=== PATIENT | female | born 1955 | race Caucasian/White ===

== ENCOUNTER → 2017-04-09 | Outpatient (CLI) | payer OTHER ==
--- NOTE | 2017-04-10 10:38 | DIREP ---
PROCEDURE:MR KNEE WITHOUT CONTRAST [Right] TECHNIQUE:Multi-planar MR images of the right knee were obtained without contrast. COMPARISON:[facility], CR, XRAY KNEE 1-2 VWS-RT, 04/05/2017, 02:29 PM. INDICATIONS:RIGHT KNEE PAIN FINDINGS: MENISCI:Partial-thickness radial tear is present involving the posterior horn medial meniscus, image 9 sagittal PD and image 19 coronal STIR. The lateral meniscus demonstrates normal signal and morphology CRUCIATE LIGAMENTS:Anterior and posterior cruciate ligaments demonstrate normal signal and morphology. COLLATERAL LIGAMENTS:The medial collateral ligament and lateral collateral ligamentous complex are intact. HYALINE CARTILAGE:Moderate chondral thinning in the medial joint compartment with subchondral cyst formation and reactive edema in the anteromedial tibia. Lateral joint compartment articular cartilage demonstrates mild partial thickness fissuring. No full-thickness lateral joint compartment defect. PATELLOFEMORAL:Grade 3/4 chondral changes to the median ridge and medial patellar facet with areas of full-thickness chondral loss present. The quadriceps and patellar tendon are intact. BONES:Subchondral cysts noted in the anteromedial tibia with reactive edema. No visible fracture. OTHER:Small effusion with synovitis. Prepatellar subcutaneous edema with overlying encapsulated fluid collection spanning a length of 6.8 cm and thickness of 0.5 cm. CONCLUSION: 1. Partial-thickness radial tear posterior horn medial meniscus. 2. 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 3. Prepatellar fluid collection either relates to bursitis or hematoma. Infection should only be considered in the appropriate clinical scenario. 4. Small effusion with synovitis. Dictated by: Valdemar Minaya M.D. on 04/10/2017 at 10:20 AM
== END | disposition home or self-care (01) ==
LOC: MRI 15:53
PROVIDERS: ATTEND Nurse Practitioner Family
DX: S83.241A Other tear of medial meniscus, current injury, right knee, initial encounter (principal); M17.11 Unilateral primary osteoarthritis, right knee; M65.161 Other infective (teno)synovitis, right knee; X58.XXXA Exposure to other specified factors, initial encounter; Y93.89 Activity, other specified; Y92.89 Other specified places as the place of occurrence of the external cause; Y99.8 Other external cause status
CPT/HCPCS: 73721

== ENCOUNTER → 2017-07-18 | Outpatient (CLI) | payer OTHER ==
--- NOTE | 2017-07-22 09:01 | ECHO ---
DATE OF SERVICE: 07/18/2017 INDICATIONS: A 61-year-old lady with cardiomyopathy, elected for an echocardiographic study for evaluation of systolic and diastolic function, any wall motion abnormality, or for any structural heart disease. FINDINGS: 1. Study quality unfortunately was poor due to poor acoustic windows and difficult technicalities. 2. The underlying rhythm is sinus rhythm, with bundle-branch block, left sided. 3. LV cavity was dilated and hypokinetic. EF was visually estimated at around 30%. The septum was dyskinetic and the LV cavity was expanding on the right ventricular space. The LV cavity was dilated with end-diastolic dimension of around 6.5 cm. 4. RV size was decreased due to septal akinesia and dyskinesia. RVEF seems to be normal. 5. Both atria were mildly dilated. 6. Trace mitral regurgitation, no stenosis. 7. Doppler signal exam across the mitral valve showed an E to A reversal of diastolic dysfunction. 8. Gradient across the mitral valve by Doppler exam was 3 mmHg, no significant stenosis. 9. LVOT velocity was 0.57 meter per second with normal pressure. 10. LVOT dimension was 2.01 cm. 11. Aortic valve velocity was 1.2 m/sec, aortic valve area was 1.5 cm2. Early stenosis was suggested. 12. Mild tricuspid regurgitation. PA pressure was around 50 mmHg, elevated. 13. Small amount of localized pericardial effusion across the right ventricle. No tamponade was seen. Maximum diameter of the fluid collection was 0.8 cm. 14. Inferior vena cava was not dilated. IMPRESSION: 1. Technically difficult study with poor acoustic windows. 2. Underlying rhythm was sinus rhythm with bundle branch block. 3. EF depressed at around 30%, global hypokinesia with dilated LV cavity, septum was dyskinetic and balance into the RV cavity. 3. RV size was depressed. RVEF was normal. 4. Both atria showed mild dilatation. 5. Trace mitral regurgitation, no stenosis. 6. Aortic sclerosis with early stenosis. 7. Elevated pulmonary artery systolic pressure at around 50 mmHg. 8. Small amount of localized pericardial effusion, no tamponade. 9. Inferior vena cava normal in size. Katelyn Gregg MD DR: TAMANNA/iker JOB# [id number]
== END | disposition home or self-care (01) ==
LOC: RT 13:00
PROVIDERS: ATTEND Nurse Practitioner Family
DX: I43 Cardiomyopathy in diseases classified elsewhere (principal); I70.0 Atherosclerosis of aorta; I31.3 Pericardial effusion (noninflammatory)
CPT/HCPCS: 93307

== ENCOUNTER → 2017-07-24 | Outpatient (CLI) | payer OTHER | END | disposition home or self-care (01) | LOC: BD 14:25 | PROVIDERS: ATTEND Nurse Practitioner Family | DX: M81.0 Age-related osteoporosis without current pathological fracture (principal) | CPT/HCPCS: 77080 ==

== ENCOUNTER → 2018-12-02 | Outpatient (CLI) | payer OTHER ==
[2018-12-02 16:16] LABS: HEMOGLOBIN 14.7 g/dL (12.0-15.0); MEAN CELL HGB CONCENTRATION 34.3 g/dL (33-37); MEAN CORP VOLUME 90.3 fL (78-100); MEAN PLATELET VOLUME 9.2 fL (7.8-11.0); RED CELL DISTRIBUTION WIDTH 12.7 % (11.5-14.5); WHITE BLOOD CELL 5.2 10^3/uL (4.5-11.0)
[2018-12-02 16:41] LABS: CALCIUM 9.3 mg/dL (8.4-10.5); CARBON DIOXIDE 25.2 mmol/L (20.0-32)
[2018-12-04 07:30] LABS: FOLLICLE STIMULATING HORMONE 54.5 mIU/mL (.)
== END | disposition home or self-care (01) ==
LOC: LAB 15:58
PROVIDERS: ATTEND Nurse Practitioner Family
DX: Z23 Encounter for immunization (principal); E11.9 Type 2 diabetes mellitus without complications; I10 Essential (primary) hypertension; N95.1 Menopausal and female climacteric states; E55.9 Vitamin D deficiency, unspecified
CPT/HCPCS: 36415; 80053; 80061; 82306; 82677; 83001; 83002; 83036; 83735; 84146; 84403; 84439; 84443; 85027; 86735; 86762; 86765

== ENCOUNTER → 2018-12-10 | Outpatient (CLI) | payer OTHER ==
--- NOTE | 2018-12-11 09:16 | DIREP ---
PROCEDURE:Digital Screening Mammogram TECHNIQUE:MLO, CC, and XCCL digital images of each breast are provided. Computer Assisted Detection (CAD) was utilized. COMPARISON:[facility], , DIGITAL MAMMO SCREENING, 08/17/2014, 02:31 PM. INDICATIONS:SCREENING BREAST COMPOSITION:There are scattered areas of fibroglandular density. FINDINGS:There are no grouped microcalcifications, masses, or architectural distortions to suggest malignancy. There is no significant change as compared with the previous examination(s). IMPRESSION:No mammographic evidence of malignancy. RECOMMENDATIONS:Routine Screening Mammography per [employer] guidelines. OVERALL FINAL ASSESSMENT:BI-RADS 1 - Negative Mammogram Note: This facility participates in a mammography screening patient reminder system. Dictated by: Duane Sharp M.D. on 12/11/2018 at 09:13 AM
== END | disposition home or self-care (01) ==
LOC: RAD 15:22
PROVIDERS: ATTEND Nurse Practitioner Family
DX: Z12.31 Encounter for screening mammogram for malignant neoplasm of breast (principal)
CPT/HCPCS: 77067

== ENCOUNTER → 2019-09-07 | Outpatient (CLI) | payer OTHER ==
--- NOTE | 2019-09-07 17:33 | DIREP ---
PROCEDURE:XRAY KNEE 2 VWS-LT COMPARISON:None. INDICATIONS:PAIN FINDINGS: BONES:Normal. JOINTS:Normal. SOFT TISSUES:Normal. OTHER:No additional findings. CONCLUSION: 1. No fracture, hemarthrosis, joint effusion, or significant osteoarthritic changes demonstrated. Dictated by: Quentin Marsh M.D. on 09/07/2019 at 05:31 PM
== END | disposition home or self-care (01) ==
LOC: RAD 16:02
PROVIDERS: ATTEND Nurse Practitioner Family
DX: M25.562 Pain in left knee (principal)
CPT/HCPCS: 73560-LT

== ENCOUNTER → 2019-09-11 | Outpatient (CLI) | payer OTHER ==
--- NOTE | 2019-09-11 14:33 | DIREP ---
PROCEDURE:CT LOWER EXTREMITY-LT W/O COMPARISON:[facility], CR, XRAY KNEE 1-2 VWS-LT, 09/07/2019, 05:09 PM. INDICATIONS:PAIN TECHNIQUE:Axial sections through the left knee were performed with sagittal and coronal reconstructions from source images. No contrast was administered. FINDINGS: BONES:No fracture noted. JOINTS:Mild tricompartmental degenerative changes,, with a focal lucent area in the patellar apex. No joint effusion is noted. SOFT TISSUES:Normal OTHER:Negative. CONCLUSION:Degenerative changes without acute abnormality noted. Dictated by: Дмитрий Yepez M.D. on 09/11/2019 at 02:27 PM
== END | disposition home or self-care (01) ==
LOC: MRI 11:15
PROVIDERS: ATTEND Nurse Practitioner Family
DX: M17.12 Unilateral primary osteoarthritis, left knee (principal)
CPT/HCPCS: 73700

== ENCOUNTER 2019-12-20 17:17 | Emergency (ER) | payer OTHER ==
[~2019-12-20] VITALS: Ht 162.6 cm; Wt 83.5 kg
[2019-12-20 17:27] VITALS: BP 104/67
--- NOTE | 2019-12-20 17:30 | NUR ---
ARRIVAL PT ARRIVED TO ER WITH C/O COUGH, SOB DURING COUGH SPELLS AND DIARRHEA. PTS SPOUSE HAS BEEN CONFIRMED COVID 19 AND IS CURRENTLY IN PT AND ON VENTILATOR. PT REPORTS SHE HAS HAD COUGH FOR A FEW WEEKS STARTING AROUND 12/03/19 WITH INCREASED COUGHING AND SOB DURING COUGHING SPELLS THE LAST DAY. BEDSIDE MONITORS APPLIED.
[2019-12-20 17:39] VITALS: BP 104/67
--- NOTE | 2019-12-20 17:40 | ER.PDOC ---
General Chief Complaint: Requesting Medical Care Stated Complaint: SOB, COUGH, FEVER Time seen by MD: 17:33 Source: patient Exam Limitations: no limitations History of Present Illness Initial Comments patient c/o feeling poorly since December 05 with congestion/cough; today she began running fever and feeling SOB; her was diagnosed + COVID December 09 and is currently on a ventillator in [place]. Timing/Duration: gradual Severity: moderate Associated Symptoms: fever/chills, runny nose, cough, productive cough, mild SOB, headache Allergies: Coded Allergies: codeine (Unverified Allergy, Unknown, EXTREMELY ILL, 11/06/17) Constitutional: chills, fever, malaise Respiratory: cough, shortness of breath Cardiovascular: no symptoms reported Gastrointestinal: no symptoms reported Musculoskeletal: no symptoms reported Skin: no symptoms reported Psychiatric/Neurological: headache Past Medical History Medical History: congestive heart failure, diabetes Social History Smoking: quit greater than 1 year Physical Exam General Appearance: alert, no distress (RA oxygen saturation 87-89%) Eye: lids & conjunct. nml Nose: nose nml Throat: pharynx nml, airway nml Respiratory: no resp.distress, breath sounds nml Abdomen: non-tender CVS: reg rate & rhythm, heart sounds nml Skin: color nml, no rash Extremities: no pedal edema NEURO/PSYCH: oriented x 3, mood/affect nml Results/Orders Results/Orders Orders - MENA ESCOBAR DO Cbc With Auto Diff (12/20/19 17:48) Comprehensive Metabolic Panel (12/20/19 17:48) Creatine Kinase (12/20/19 17:48) Creatine Kinase Mb (12/20/19 17:48) Probnp B-Type Shirt Turner (12/20/19 17:48) Troponin I (12/20/19 17:48) D-Dimer (12/20/19 17:48) Blood Culture (12/20/19 17:48) Xr Chest 1v (12/20/19 17:48) PT (12/20/19 17:48) Partial Thromboplastin Time. (12/20/19 17:48) Ekg-Routine (12/20/19 17:48) Saline Lock (12/20/19 17:48) Lactate Dehydrogenase (12/20/19 17:48) C-Reactive Protein (12/20/19 17:48) Ferritin(Ml) (12/20/19 17:48) Influenza A&B (12/20/19 17:48) Strep Screen (12/20/19 17:48) Ct Chest Wo Iv Contrast (12/20/19 18:50) 0.9 % Sodium Chloride (Ns 1000ml) (12/20/19 19:53) Azithromycin (Zithromax) (12/20/19 19:53) Ceftriaxone Sodium (Rocephin) (12/20/19 19:53) 0.9 % Sodium Chloride (Ns 1000ml) (12/20/19 19:57) Ceftriaxone Sodium (Rocephin) (12/20/19 19:58) Azithromycin (Zithromax) (12/20/19 19:58) Novel Coronavirus 2019(Dshs) (12/20/19 17:10) Vital Signs Date Time Temp Pulse Resp B/P (MAP) Pulse Ox O2 Delivery O2 Flow Rate FiO2 12/20/19 20:20 99.1 84 20 126/54 (78) 95 Nasal Canula 2.00 12/20/19 17:39 99.1 86 20 104/67 (79) 88 Room Air 12/20/19 17:27 99.1 86 20 12/20/19 17:27 99.1 86 20 88 Laboratory Tests Test 12/20/19 17:10 White Blood Count 2.6 10^3/uL (4.5-11.0) L Red Blood Count 3.88 10^6/uL (4.00-5.20) L Hemoglobin 11.9 g/dL (12.0-15.0) L Hematocrit 34.9 % (36.0-46.0) L Mean Corpuscular Volume 89.9 fL (78-100) Mean Corpuscular Hemoglobin 30.7 pg (26-34) Mean Corpuscular Hemoglobin Concent 34.1 g/dL (33-36.5) Red Cell Distribution Width 12.4 % (11.5-14.5) Platelet Count 146 10^3/uL (150-400) L Mean Platelet Volume 10.3 fL (7.8-11.0) Neutrophils (%) (Auto) 60.7 % (41.0-85.0) Lymphocytes (%) (Auto) 28.5 % (24.0-44.0) Monocytes (%) (Auto) 9.6 % (5.0-12.0) Neutrophils # (Auto) 1.6 10^3/uL (1.8-7.7) L Lymphocytes # (Auto) 0.74 10^3/uL1 (1.0-4.8) L Monocytes # (Auto) 0.3 10^3/uL (0.3-0.8) Absolute Immature Granulocyte (auto 0.01 10^3 u/L (0-2) Absolute Eosinophils (auto) 0.0 10^3/uL (0.0-0.2) Immature Granulocytes % 0.40 % (0.00-0.50) Eosinophils % 0.4 % (0.0-5.0) Basophils % 0.4 % (0.0-0.2) H Basophils # 0.0 10^3/uL (0.0-0.1) Prothrombin Time 10.0 SEC (9.3-11.3) Prothrombin Time INR (Non-Therap) 1.0 Activated Partial Thromboplast Time 26.7 SEC (24.67-30.72) D-Dimer 0.85 mg/L (0.19-0.49) *H Sodium Level 141 mmol/L (132-145) Potassium Level 3.7 mmol/L (3.6-5.2) Chloride Level 107.0 mmol/L (96-109) Carbon Dioxide Level 22.9 mmol/L (20.0-32) Anion Gap 14.8 Blood Urea Nitrogen 15 mg/dL (7-18) Creatinine 0.99 mg/dL (0.59-1.40) Estimated GFR () 68.5 (>/=60) Est GFR (CKD-EPI)(Non-Afr Vincentian) 56.7 (>/=60) BUN/Creatinine Ratio 15.0 Glucose Level 124 mg/dL (70-110) H Calcium Level 8.3 mg/dL (8.4-10.5) L Ferritin 645 ng/mL (8-252) H Total Bilirubin 0.6 mg/dL (0.2-1.0) Aspartate Amino Transferase (AST) 46 U/L (0-35) H Alanine Aminotransferase (ALT) 53 U/L (12-78) Alkaline Phosphatase 64 U/L (50-136) Lactate Dehydrogenase 449 U/L (81-234) H Total Creatine Kinase 86 U/L (26-192) Creatine Kinase MB < 0.5 ng/mL (0.5-3.6) L Troponin I < 0.02 ng/mL (0.00-0.05) C-Reactive Protein 3.10 mg/dL (0.00-5.00) Pro-B-Type Natriuretic Peptide 99 pg/mL (0-125) Total Protein 6.6 g/dL (6.4-8.2) Albumin 3.0 g/dL (3.4-5.0) L Globulin 3.6 Coronavirus (PCR) NOT DETECTED (NOT DETECTD) Influenza Type A Antigen NEGATIVE (NEG) Influenza B Immunofluorescence NEGATIVE (NEG) Group A Streptococcus Screen NEGATIVE (NEGATIVE) Microbiology Date/Time Source Procedure Growth Status 12/20/19 17:10 Throat Group A Strep Throat Culture - Final Complete 12/20/19 17:10 Blood Blood Culture - Final NO GROWTH AFTER 5 DAYS Complete 12/20/19 17:10 Blood Blood Culture - Final NO GROWTH AFTER 5 DAYS Complete Progress Progress Discussed with Annabelle at [facility] Dept at 1800: d/t + exposure to known COVID 19 patient (her is on a ventillator d/t COVID19), + fever, low oxygen saturation and SOB, we WILL test for [id number] Patient's WBC is 2.6, LDH is elevated, ferritin is elevated, Ddimer is positive and she exhibits bilateral infiltrates on CT, PLUS her is on a ventilator with [id number]--hef of which point to potential adverse outcomes. I have pleaded with her to stay in the hospital (she is hypoxic 87-89% RA), but she absolutely refuses to stay. I have explained that signing AMA does not mean I am upset with her or that she is unwelcome to return--that in fact it means the opposite...I WANT HER TO RETURN. She does agree to return if she is struggling to breath, if she feels worse. EKG/XRAY/CT/US EKG Comments: paced CT Comments: bilateral pneumonia Departure Time of Disposition: 19:45 Disposition: 07 AGAINST MEDICAL ADVICE Impression: Primary Impression: Pneumonia Additional Impressions: Suspected COVID-19 virus infection Exposure to COVID-19 virus Advice given about COVID-19 virus infection Condition: Against Medical Advice Patient Instructions: Pneumonia, Adult Referrals: NATASHA LEON WOOD DIE MAKER (PCP) PRIMARY CARE PROVIDER Additional Instructions: Take antibiotics until all gone. Please return to ER immediately if you feel worse, if you are struggling to breath, or for any other concerns. Duration or Time Spent with Pa: 40 min Problem Qualifiers Primary Impression: Pneumonia Pneumonia type: due to unspecified organism Laterality: bilateral Lung location: lower lobe of lung Qualified Codes: J18.9 - Pneumonia, unspecified organism MENA ESCOBAR DO Dec 20, 2019 17:40
--- NOTE | 2019-12-20 17:40 | NUR ---
O2 SATURATION 02 AT 94% ON 2LPM VIA N/C.
--- NOTE | 2019-12-20 17:59 | NUR ---
HEALTH DEPT DR ESCOBAR [facility] PH[facility].
[2019-12-20 18:01] LABS: BASOPHIL % 0.4 % (0.0-0.2); EOSINOPHIL % 0.4 % (0.0-5.0); LYMPHOCYTES # 0.74 10^3/uL1 (1.0-4.8); LYMPHOCYTES % 28.5 % (24.0-44.0); MEAN CORP HGB 30.7 pg (26-34); MONOCYTES # 0.3 10^3/uL (0.3-0.8); MONOCYTES % 9.6 % (5.0-12.0); NEUTROPHIL # 1.6 10^3/uL (1.8-7.7); NEUTROPHILS % 60.7 % (41.0-85.0); RED CELL DISTRIBUTION WIDTH 12.4 % (11.5-14.5)
[2019-12-20 18:24] LABS: ALANINE AMINOTRANSFERASE(ML) 53 U/L (12-78); ALKALINE PHOSPHATASE 64 U/L (50-136); ASPARTATE AMINO TRANSFERASE 46 U/L (0-35); CALCIUM 8.3 mg/dL (8.4-10.5); CARBON DIOXIDE 22.9 mmol/L (20.0-32); GLUCOSE 124 mg/dL (70-110)
--- NOTE | 2019-12-20 18:27 | NUR ---
CRITICAL LAB NOTIFIED DR ESCOBAR OF D-DIMER 0.85. NO NEW ORDERS RECEIVED.
--- NOTE | 2019-12-20 18:35 | NUR ---
COVID 19 TESTING APPROVAL NUMBER [id number]
--- NOTE | 2019-12-20 18:56 | DIREP ---
PROCEDURE:CHEST 1 VIEW COMPARISON:None. INDICATIONS:cough FINDINGS: LUNGS/PLEURA:Suggestion of mild right basilar consolidation. No effusion noted. VASCULATURE:Mildly prominent pulmonary vasculature. CARDIAC:Borderline cardiomegaly. Cardiac AICD in place. MEDIASTINUM:Normal. No visible mass or adenopathy. BONES:Degenerative change. OTHER:Negative. CONCLUSION:1. Suggestion of mild right basilar consolidation, which may represent pneumonia in the proper clinical setting. 2. Cardiomegaly with mildly prominent pulmonary vasculature, consistent with CHF/edema. Dictated by: Дмитрий Yepez M.D. on 12/20/2019 at 06:54 PM
--- NOTE | 2019-12-20 19:31 | DIREP ---
PROCEDURE:CT CHEST W/O COMPARISON:[facility], CR, XRAY CHEST SINGLE VW, 12/20/2019, 06:34 PM. INDICATIONS:hypoxia TECHNIQUE:Helical sections through the chest were performed from the lung apices through the diaphragms without IV contrast. Sagittal and coronal reconstructions are obtained from source images. FINDINGS: LUNGS:Patchy areas of airspace opacification are seen with a predominantly basilar and peripheral predominance, right worse than left. Small right pleural effusion. CARDIAC:Normal in size. Multiple pacemaker leads. MEDIASTINUM:Normal. No mass or adenopathy. JOSEPH:Normal. No mass or adenopathy. AORTA:Normal. No aneurysm. CHEST WALL:Left chest wall battery pack. LIMITED ABDOMEN:Normal. Limited images of the upper abdomen are unremarkable. BONES:Mild diffuse degenerative changes. No acute bony abnormality. OTHER:Negative. CONCLUSION:1. Right worse than left basilar patchy airspace opacities, consistent with pneumonia proper clinical setting. Small right pleural effusion. Dictated by: Дмитрий Yepez M.D. on 12/20/2019 at 07:27 PM
--- NOTE | 2019-12-20 19:45 | NUR ---
DR. ESCOBAR AT BEDSIDE TO DISCUSS PLAN OF CARE WITH PATIENT
[2019-12-20] MEDS ORDERED: NS 1000ML 1,000 ML STA (19:53)
[2019-12-20] MEDS ORDERED: ROCEPHIN 1 GM in NS 100ML 100 ML IV STA (19:53)
[2019-12-20] MEDS ORDERED: ZITHROMAX PO STA (19:53)
[2019-12-20] MEDS ORDERED: NS 1000ML 1,000 ML ONE (19:57)
[2019-12-20] MEDS ORDERED: ROCEPHIN ONE (19:58)
[2019-12-20] MEDS ORDERED: ZITHROMAX ONE (19:58)
[2019-12-20 20:20] VITALS: BP 126/54
--- NOTE | 2019-12-21 14:34 | PCM.EKG ---
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
== END 2019-12-20 20:58 | disposition left against medical advice (07) ==
LOC: ER 17:17
DX: J18.9 Pneumonia, unspecified organism (principal); I50.9 Heart failure, unspecified; E11.9 Type 2 diabetes mellitus without complications; Z20.828 Contact with and (suspected) exposure to other viral communicable diseases; Z87.891 Personal history of nicotine dependence; Z71.89 Other specified counseling; Z88.5 Allergy status to narcotic agent
CPT/HCPCS: 36415; 71045; 71250; 80053; 82550; 82553; 82728; 83615; 83880; 84484; 85025; 85379; 85610; 85730; 86140; 87040 ×2; 87070; 87804 ×2; 87880; 93005; 96365; 99285; J0696; J7030; U0001; J7050; Q0144

== ENCOUNTER → 2020-01-07 | Outpatient (CLI) | payer OTHER ==
--- NOTE | 2020-01-07 14:53 | DIREP ---
PROCEDURE:CHEST 2 VIEWS COMPARISON:[facility], CT, CT CHEST W/O, 12/20/2019, 07:02 PM. [facility], CR, XRAY CHEST SINGLE VW, 12/20/2019, 06:34 PM. INDICATIONS:J18.9 PNEUMONIA FINDINGS: LUNGS/PLEURA:Ill-defined hazy opacities in the right lower lobe. No other significant pulmonary parenchymal abnormalities. No effusions. VASCULATURE:Normal. Unremarkable pulmonary vasculature. CARDIAC:Normal. No cardiac silhouette abnormality or cardiomegaly. Left pacemaker. MEDIASTINUM:Atherosclerotic aorta with no visible aneurysm. BONES:Normal. No fracture or visible bony lesion. OTHER:Negative. CONCLUSION:Ill-defined hazy opacities in the right lower lobe. Dictated by: Duane Sharp M.D. on 01/07/2020 at 02:50 PM
== END | disposition home or self-care (01) ==
LOC: RAD 14:27
PROVIDERS: ATTEND Nurse Practitioner Family
DX: J18.9 Pneumonia, unspecified organism (principal)
CPT/HCPCS: 71046

== ENCOUNTER → 2020-03-16 | Outpatient (CLI) | payer OTHER ==
[2020-03-16 16:20] LABS: MEAN CORP HGB 30.3 pg (26-34); RED CELL DISTRIBUTION WIDTH 13.1 % (11.5-14.5)
[2020-03-16 17:32] LABS: CALCIUM 9.1 mg/dL (8.4-10.5); CARBON DIOXIDE 25.9 mmol/L (20.0-32)
[2020-03-18 15:13] LABS: SJOGREN'S ANTI-SS-B <0.2 AI (0.0-0.9)
== END | disposition home or self-care (01) ==
LOC: LAB 15:54
PROVIDERS: ATTEND Nurse Practitioner Family
DX: E11.9 Type 2 diabetes mellitus without complications (principal); L65.9 Nonscarring hair loss, unspecified; I10 Essential (primary) hypertension; E55.9 Vitamin D deficiency, unspecified
CPT/HCPCS: 36415; 80048; 80061; 80076; 82043; 82306; 82728; 83036; 84403; 84439; 84443; 85027; 86038

== ENCOUNTER → 2020-08-20 | Outpatient (CLI) | payer OTHER ==
[2020-08-20 13:15] LABS: MEAN CORP HGB 30.5 pg (26-34); RED CELL DISTRIBUTION WIDTH 12.7 % (11.5-14.5)
[2020-08-20 13:42] LABS: CALCIUM 9.2 mg/dL (8.4-10.5); CARBON DIOXIDE 26.5 mmol/L (20.0-32)
== END | disposition home or self-care (01) ==
LOC: NPLAB 12:03
PROVIDERS: ATTEND Nurse Practitioner Family
DX: I10 Essential (primary) hypertension (principal); E11.9 Type 2 diabetes mellitus without complications; E55.9 Vitamin D deficiency, unspecified
CPT/HCPCS: 36415; 80053; 80061; 82043; 82306; 83036; 83735; 84439; 84443; 85027

== ENCOUNTER → 2025-06-18 | Outpatient (CLI) | payer OTHER ==
[2025-06-18 14:35] LABS: BASOPHIL # 0.0 10^3/uL (0.0-0.1); BASOPHIL % 0.6 % (0.1-1.2); EOSINOPHIL # 0.1 10^3/uL (0.0-0.2); EOSINOPHIL % 1.8 % (0.0-5.0); HEMATOCRIT(ML) 41.7 % (36.0-46.0); IG % 0.00 % (0.00-0.50); LYMPHOCYTES # 1.66 10^3/uL1 (1.0-4.8); LYMPHOCYTES % 33.5 % (24.0-44.0); MEAN CORP HGB 30.1 pg (26-34); MEAN CORP HGB CONCENTRATION 32.9 g/dL (33-36.5); MEAN CORP VOLUME 91.6 fL (78-100); MONOCYTES # 0.4 10^3/uL (0.3-0.8); MONOCYTES % 8.3 % (5.0-12.0); NEUTROPHIL # 2.8 10^3/uL (1.8-7.7); NEUTROPHILS % 55.8 % (41.0-85.0); RED BLOOD CELL 4.55 10^6/uL (4.00-5.20); RED CELL DISTRIBUTION WIDTH 12.7 % (11.5-14.5); WHITE BLOOD CELL 5.0 10^3/uL (4.5-11.0)
[2025-06-18 15:16] LABS: ALANINE AMINOTRANSFERASE(ML) 43.0 U/L (12-78); ALBUMIN(ML) 4.3 g/dL (3.4-5.0); CREATININE SERUM 0.77 mg/dL (0.59-1.40); EST GFR, NON-AA 74.5 (>/=60); LDL/HDL RATIO 0.5
== END | disposition home or self-care (01) ==
LOC: LAB 14:06
PROVIDERS: ATTEND Nurse Practitioner Family
DX: I10 Essential (primary) hypertension (principal); E11.9 Type 2 diabetes mellitus without complications
CPT/HCPCS: 36415; 80053; 80061; 82306; 83036; 84439; 84443; 85025